=== PATIENT | male | born 1955 | race Caucasian/White ===

== ENCOUNTER 2017-10-28 13:19 | Emergency (ER) | payer MEDICARE ==
[~2017-10-28] VITALS: Ht 180.3 cm; Wt 77.2 kg
[~2017-10-28 13:19] MED LIST: CYAN10005 PO; HYDR50TA13 PO; IPRA3AMP NPPB; OLAN5TAB9 PO; RISP4TAB2 PO; THIA100T6 PO; TRAZ100T15 PO
[2017-10-28 14:30] LABS: TROPONIN I < 0.015 ng/mL (0.000-0.045)
[2017-10-28 15:44] VITALS: BP 121/75
== END 2017-10-28 16:14 | disposition home or self-care (01) ==
LOC: ED 14:50
DX: F15.10 Other stimulant abuse, uncomplicated (principal); G89.29 Other chronic pain; M54.2 Cervicalgia; F31.9 Bipolar disorder, unspecified; J45.909 Unspecified asthma, uncomplicated
CPT/HCPCS: 36415; 84484; 93005; 99285